=== PATIENT | male | born 2000 | race Caucasian/White ===

== ENCOUNTER 2020-03-30 14:30 | Emergency (ER) | payer OTHER ==
[~2020-03-30] VITALS: Ht 188 cm; Wt 63.6 kg
[2020-03-30 14:38] VITALS: BP 143/78; TEMP 98.3
[2020-03-30 15:53] VITALS: PULSE 89
[2020-03-30] MEDS ORDERED: PAXIL 20MG20 MG PO (15:53)
== END 2020-03-30 15:55 | disposition home or self-care (01) ==
LOC: COL.ER 14:30
DX: S06.9X9A Unspecified intracranial injury with loss of consciousness of unspecified duration, initial encounter (principal); S60.211A Contusion of right wrist, initial encounter; F32.9 Major depressive disorder, single episode, unspecified; Y04.2XXA Assault by strike against or bumped into by another person, initial encounter